=== PATIENT | male | born 1980 | race Caucasian/White ===

== ENCOUNTER 2021-06-30 23:06 | Emergency (ER) | payer MEDICAID ==
[~2021-06-30] VITALS: Ht 167.6 cm; Wt 82.0 kg
[2021-06-30] MEDS ORDERED: ONDANSETRON HCL 4MG/2ML INJ IV STA (23:28)
[2021-06-30] MEDS ORDERED: KETOROLAC 30MG/ML VIAL IV STA (23:28)
[2021-06-30] MEDS ORDERED: MORPHINE SULFATE 4 MG/ML CPJ (NOT FOR IM USE) IV STA (23:28)
[2021-06-30] MEDS ORDERED: SODIUM CHLORIDE 0.9% 1,000 ML IV ONE (23:30)
[2021-06-30] MEDS ORDERED: MORPHINE SULFATE 2 MG/ML CPJ (NOT FOR IM USE) IV NR (23:45)
[2021-06-30 23:56] LABS: BASOPHILS % 0.7 % (0.0-2.0); EOSINOPHILS % 5.4 % (0.0-5.0); HEMATOCRIT. 44.8 % (42.0-52.0); HEMOGLOBIN. 15.6 g/dL (14.0-18.0); LYMPHOCYTES % 45.3 % (20.0-50.0); MEAN CORPUSCULAR HEMOGLOBIN 30.6 pg (28.0-32.0); MEAN CORPUSCULAR VOLUME 87.7 fL (80.0-94.0); MEAN PLATELET VOLUME 7.8 fl (7.4-10.4); MONOCYTES % 6.8 % (2.0-8.0); NEUTROPHILS % 41.8 % (40.0-76.0); PLATELET 255 x1000/uL (130-400); RED BLOOD CELL COUNT 5.11 mill/uL (4.7-6.1); RED CELL DISTRIBUTION WIDTH 13.3 % (11.6-14.6)
[2021-07-01] LABS: CHLORIDE 108 mEq/L (98-107)
[2021-07-01 00:03] LABS: PROTHROMBIN TIME 10.7 sec (9.6-11.0)
[2021-07-01 00:26] LABS: CLARITY URINE CLEAR (CLEAR); COLOR URINE YELLOW (YELLOW); KETONES URINE TRACE (NEGATIVE); LEUKOCYTE ESTERASE URINE NEGATIVE (NEGATIVE); NITRITE URINE NEGATIVE (NEGATIVE); OCCULT BLOOD URINE 3+ (NEGATIVE); PH URINE 5.5 (4.5-8.0); PROTEIN URINE TRACE (NEGATIVE); SPECIFIC GRAVITY URINE 1.025 (1.005-1.030)
[2021-07-01] MEDS ORDERED: HYDR-4001 MT ×2 (02:35→02:50)
[2021-07-01] MEDS ORDERED: TAMS-11 MT ×2 (02:35→02:50)
[2021-07-01] MEDS ORDERED: IBUP-2028 MT ×2 (02:35→02:50)
[2021-07-01 03:07] VITALS: BP 105/65
== END 2021-07-01 04:53 | disposition home or self-care (01) ==
LOC: ER 23:32
DX: N23 Unspecified renal colic (principal); Z87.820 Personal history of traumatic brain injury; Z98.890 Other specified postprocedural states
CPT/HCPCS: 36415; 74176; 80053; 81003; 83690; 85025; 85610; 96361; 96374; 96375; 99284; J1885; J2270; J2405; J7030